=== PATIENT | male | born 1995 | race Caucasian/White ===

== ENCOUNTER 2017-03-09 20:06 | Emergency (ER) | payer BC, OTHER ==
[2017-03-09 20:26] VITALS: BP 154/71; PULSE 75; TEMP 99.7; BMI 21.2
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
[2017-03-09] MEDS ORDERED: KETOROLAC TROMETHAMINE 60 MG/2 ML VIAL IM ONE (21:10)
[2017-03-09] MEDS ORDERED: KETOROLAC TROMETHAMINE 60 MG/2 ML VIAL ONE (21:13)
== END 2017-03-09 22:33 | disposition home or self-care (01) ==
LOC: JERFT 20:06
PROC: 3E0233Z Introduction of Anti-inflammatory into Muscle, Percutaneous Approach (ICD-10-PCS; principal; 2017-03-09)
DX: M25.551 Pain in right hip (principal); M79.604 Pain in right leg; V47.5XXA Car driver injured in collision with fixed or stationary object in traffic accident, initial encounter; W22.11XA Striking against or struck by driver side automobile airbag, initial encounter; Y92.414 Local residential or business street as the place of occurrence of the external cause; Y93.89 Activity, other specified; Y99.9 Unspecified external cause status
CPT/HCPCS: 72100-TC; 73523-TC; 73552-TC-LT; 99281-25

== ENCOUNTER 2017-04-01 15:55 | Emergency (ER) | payer BC, OTHER ==
[2017-04-01 16:09] VITALS: BP 103/80; PULSE 61; TEMP 97.9; BMI 21.2
[2017-04-01] MEDS ORDERED: CYCLOBENZAPRINE HCL 10 MG TABLET (FP) PO ONE (17:13)
[2017-04-01] MEDS ORDERED: KETOROLAC TROMETHAMINE 30 MG/1 ML VIAL IM ONE (17:13)
[2017-04-01] MEDS ORDERED: CYCLOBENZAPRINE HCL 10 MG TABLET (FP) ONE (17:16)
[2017-04-01] MEDS ORDERED: KETOROLAC TROMETHAMINE 30 MG/1 ML VIAL ONE (17:16)
--- NOTE | 2017-04-01 17:18 | PDOC ---
History of Present Illness - General Chief Complaint: Back Pain Stated Complaint: BACK PAIN/INJURY Time Seen by Provider: 04/01/17 16:32 History Source: Patient Exam Limitations: No Limitations - History of Present Illness Initial Comments: 04/01/17 17:18 CHIEF COMPLAINT: Back pain HISTORY OF PRESENT ILLNESS: This is an otherwise healthy 21 year old male who presents for evaluation of low back pain. He reports feeling a "twinge" in his right lower back while picking up a tire at work today. He has been ambulating without difficulty, but continues to have pain. He denies lower extremity weakness or numbness, bladder or bowel incontinence, or any other symptoms. V/s on arrival are all within normal limits. REVIEW OF SYSTEMS: GENERAL/CONSTITUTIONAL: No fever or chills. No weakness. No weight change. HEAD, EYES, EARS, NOSE AND THROAT: No change in vision. No ear pain or discharge. No sore throat. CARDIOVASCULAR: No chest pain or palpitations. RESPIRATORY: No cough, wheezing, or shortness of breath. GASTROINTESTINAL: No nausea, vomiting, diarrhea or constipation. GENITOURINARY: No dysuria, frequency, or change in urination. MUSCULOSKELETAL: See HPI. SKIN: No rash or easy bruising. NEUROLOGIC: No headache, vertigo, loss of consciousness, or loss of sensation. ALLERGIC/IMMUNOLOGIC: No hives or skin allergy. No latex allergy. PHYSICAL EXAM: GENERAL: The patient is awake, alert, and fully oriented, in no acute distress. ENT: Pupils equal, round and reactive to light, extraocular movements intact, sclera anicteric, conjunctiva clear. Neck supple. LUNGS: Clear to auscultation bilaterally. Normal excursion. No respiratory distress or use of accessory muscles. CV: RRR, S1/S2, no MRG. Cap refill < 2 sec. ABDOMEN: Soft, non-distended, non-tender. EXTREMITIES: Normal range of motion, no edema. NEUROLOGICAL: Normal speech, normal gait. CN II-XII grossly intact. 5/5 upper and lower extremity strength bilaterally. No saddle anesthesia. SKIN: Warm, dry, normal turgor, no rashes or lesions noted. Past History - Past Medical History Allergies/Adverse Reactions: Allergies Allergy/AdvReac Type Severity Reaction Status Date / Time No Known Allergies Allergy Verified 04/01/17 16:06 Home Medications: Ambulatory Orders Tramadol HCl 50 mg PO Q4H #20 tablet MDD 300mg 03/09/17 Cyclobenzaprine HCl [Flexeril 10 mg] 10 mg PO HS PRN #5 tablet 04/01/17 Ibuprofen [Motrin -] 600 mg PO QID #28 tablet 04/01/17 - Immunization History Immunization Up to Date: Yes - Psycho/Social/Smoking Cessation Hx Anxiety: No Suicidal Ideation: No Smoking History: Never smoked Have you smoked in the past 12 months: No Number of Cigarettes Smoked Daily: 6 Information on smoking cessation initiated: No Hx Alcohol Use: No Drug/Substance Use Hx: No Substance Use Type: Alcohol, Marijuana *Physical Exam - Vital Signs Last Vital Signs Temp Pulse Resp BP Pulse Ox 97.9 F 61 18 103/80 98 04/01/17 16:07 04/01/17 16:07 04/01/17 16:07 04/01/17 16:07 04/01/17 16:07 Medical Decision Making - Medical Decision Making 04/01/17 17:22 A/P: 21 year old male with mechanical low back pain. 1. Toradol 30mg IM and Flexeril 10mg PO for pain 2. Re-assess 04/01/17 17:50 Patient re-evaluated and is feeling better. Followup instructions and return precautions reviewed. *DC/Admit/Observation/Transfer Diagnosis at time of Disposition: Back pain Qualifiers: Back pain location: low back pain Back pain laterality: right Sciatica presence : without sciatica - Discharge Dispostion Disposition: HOME Admit: No - Prescriptions Prescriptions: Cyclobenzaprine HCl [Flexeril 10 mg] 10 mg PO HS PRN #5 tablet PRN Reason: Pain Ibuprofen [Motrin -] 600 mg PO QID #28 tablet - Referrals Referrals: Patrick Mckoy MD [Staff Physician] - - Patient Instructions Printed Discharge Instructions: DI for Low Back Pain Additional Instructions: -Rest and apply ice to the painful area -Take ibuprofen and Flexeril as prescribed -Follow up with primary care (referral enclosed) -Return here for worsening pain, weakness/numbness in the legs, change in bladder or bowel function, or any other concerning symptoms - Post Discharge Activity Work/School Note: Back to Work
== END 2017-04-01 18:05 | disposition home or self-care (01) ==
LOC: JERFT 15:55
PROC: 3E0233Z Introduction of Anti-inflammatory into Muscle, Percutaneous Approach (ICD-10-PCS; principal; 2017-04-01)
DX: M54.5 Low back pain (principal); X50.0XXA Overexertion from strenuous movement or load, initial encounter; Y93.89 Activity, other specified; Y92.63 Factory as the place of occurrence of the external cause; Y99.0 Civilian activity done for income or pay
CPT/HCPCS: 99281-25

== ENCOUNTER 2019-02-18 01:04 | Emergency (ER) | payer SELFPAY ==
[2019-02-18 01:12] VITALS: BP 114/76; PULSE 64; TEMP 98.5; BMI 22.4
[2019-02-18] MEDS ORDERED: AZITHROMYCIN 500 MG TABLET PO ONE (01:40)
--- NOTE | 2019-02-18 01:46 | PDOC ---
History of Present Illness - General Chief Complaint: Urinary Problem Stated Complaint: BLEEDING UPON URINATION Time Seen by Provider: 02/18/19 01:07 - History of Present Illness Initial Comments: 02/18/19 01:45 23 years old with no significant past medical history presents to the emergency department with 5 day history of blood-tinged urine at the end of urination. This is accompanied by a slight discomfort at the end of urination. Patient is currently sexually active does not use protection more than 1 partner. No fever no chills no back pain no stomach pain symptoms are mild persistent constant but only at the end of urination. Past History - Past Medical History Allergies/Adverse Reactions: Allergies Allergy/AdvReac Type Severity Reaction Status Date / Time No Known Allergies Allergy Verified 04/01/17 16:06 Home Medications: Ambulatory Orders Cephalexin Monohydrate [Keflex -] 500 mg PO BID 7 Days #14 capsule 02/19/19 Phenazopyridine HCl [Pyridium -] 100 mg PO BID #6 tablet 02/19/19 COPD: No - Immunization History Immunization Up to Date: Yes - Suicide/Smoking/Psychosocial Hx Smoking History: Unknown if ever smoked Have you smoked in the past 12 months: No Number of Cigarettes Smoked Daily: 0 Information on smoking cessation initiated: No Hx Alcohol Use: No Drug/Substance Use Hx: No Substance Use Type: Alcohol, Marijuana Review of Systems - Review of Systems Comments:: 02/18/19 01:46 ROS: A complete review of 10 out of 10 review of systems is taken and is negative apart from what is previously mentioned below and in the HPI. *Physical Exam - Vital Signs Last Vital Signs Temp Pulse Resp BP Pulse Ox 98.5 F 64 14 114/76 100 02/18/19 01:07 02/18/19 01:07 02/18/19 01:07 02/18/19 01:07 02/18/19 01:07 - Physical Exam Comments: 02/18/19 01:46 Vitals: Triage Vital signs reviewed General Appearance: no acute distress, well nourished well developed, Head: Atraumatic, Abdomen: Soft, non distended, normal bowel sounds, non tender to palpation Musculoskeletal: No CVA TTP : No external trauma to meatus. Prostate Exam wnl, no bogginess, no ttp Psych: normal mood, normal affect Medical Decision Making - Medical Decision Making 02/18/19 01:49 Well-appearing no apparent distress presents with 5 day history of small amount of blood at the end of urination Normal impressive exam here in the emergency department Workup including urinalysis and STD swab testing We'll treat empirically with ceftriaxone and azithromycin We'll call patient with results of urinalysis if any additional antibiotics are needed *DC/Admit/Observation/Transfer Diagnosis at time of Disposition: Hematuria Qualifiers: Hematuria type: unspecified type Qualified Code(s): R31.9 - Hematuria, unspecified - Discharge Dispostion Disposition: HOME Condition at time of disposition: Good Decision to Admit order: No - Prescriptions Prescriptions: Cephalexin Monohydrate [Keflex -] 500 mg PO BID 7 Days #14 capsule Phenazopyridine HCl [Pyridium -] 100 mg PO BID #6 tablet - Referrals Referrals: Chapo Sandoval MD [Staff Physician] - - Patient Instructions Printed Discharge Instructions: Blood in Urine Additional Instructions: You were treated in the emergency department empirically (before any results) for STD with ceftriaxone and azithromycin. If your symptoms persist for more than 2-3 days follow-up with the urologist provided. You will receive a phone call if any additional treatments are needed. - Post Discharge Activity
[2019-02-18] MEDS ORDERED: AZITHROMYCIN 250 MG TABLET ONE (01:47)
[2019-02-18] MEDS ORDERED: LIDOCAINE HCL 2% (20ML MULTI-DOSE VIAL) NR ONE (01:47)
[2019-02-18 06:50] LABS: EPITHELIAL CELLS 4 /hpf
== END 2019-02-18 01:56 | disposition home or self-care (01) ==
LOC: FER 01:04
DX: R31.9 Hematuria, unspecified (principal); Z11.3 Encounter for screening for infections with a predominantly sexual mode of transmission
CPT/HCPCS: 36415; 81003; 81015; 87086; 87186; 87491; 87591; 87661; 99283-25